=== PATIENT | female | born 1950 | race Caucasian/White ===

== ENCOUNTER 2020-05-11 17:20 | Emergency (ER) | payer BC, MEDICARE ==
[~2020-05-11] VITALS: Ht 167.6 cm; Wt 64.4 kg
[2020-05-11] MEDS ORDERED: MONT10TA97 PO (17:45)
[2020-05-11] MEDS ORDERED: ALPR0.5T8 PO (17:45)
[2020-05-11] MEDS ORDERED: ONDA4TAB5 SL (17:45)
[2020-05-11] MEDS ORDERED: FAMO-132 PO (17:45)
[2020-05-11] MEDS ORDERED: IV NORMAL SALINE 1000 ML BAG IV ONE ×2 (18:00→19:45)
[2020-05-11] MEDS ORDERED: ONDANSETRON 4 MG/2 ML VIAL IV ONE (18:00)
[2020-05-11 18:24] LABS: EOSINOPHILS % (AUTO) 0.1 % (0.0-7.0); LYMPHOCYTES # (AUTO) 0.4 K/uL (20.0-40.0); MONOCYTES # (AUTO) 0.2 K/uL (2.0-10.0)
--- NOTE | 2020-05-11 18:27 | NUR ---
Pt's Port a cath on Rt chest wall accessed, per Md order. Labs drawn and sent to Lab.
[2020-05-11 18:32] LABS: BASOPHILS % (AUTO) 0.1 % (0.0-2.0); HEMOGLOBIN 10.6 g/dL (10.9-14.3); LYMPHOCYTES % (AUTO) 5.7 % (20.5-51.5); MEAN CORPUSCULAR HEMOGLOBIN 33.7 uug (24.7-32.8); MEAN CORPUSCULAR HGB CONC 34 g/dL (32.3-35.6); MEAN CORPUSCULAR VOLUME 98.5 fL (75.5-95.3); MONOCYTES % (AUTO) 2.7 % (0.0-11.0); NEUTROPHILS # (AUTO) 6.6 K/uL (1.8-8.9); NEUTROPHILS % (AUTO) 91.4 % (38.5-71.5); PLATELET COUNT (AUTO) 81 K/uL (179-408); RED BLOOD CELL COUNT(AUTO) 3.15 MIL/uL (3.63-4.92); WHITE BLOOD COUNT (AUTO) 7.3 K/uL (3.8-11.8)
[2020-05-11 18:36] LABS: CREATININE 1.8 mg/dL (0.6-1.3)
[2020-05-11] MEDS ORDERED: ONDANSETRON 4 MG/2 ML VIAL ONE (18:36)
[2020-05-11 18:41] LABS: BILIRUBIN,DIRECT 0.2 mg/dL (0.0-0.2); BILIRUBIN,TOTAL 0.5 mg/dL (0.2-1.0); TOTAL PROTEIN, SERUM 8.1 g/dL (6.4-8.2)
[2020-05-11 20:55] LABS: MAGNESIUM 1.4 mg/dL (1.8-2.4); PHOSPHOROUS 3.5 mg/dL (2.5-4.9)
[2020-05-11] MEDS ORDERED: MAGNESIUM SULFATE/D5W 100 ML IV SCH ×2 (21:15→21:30)
[2020-05-11] MEDS ORDERED: MAGNESIUM SULFATE/D5W 200 ML ONE (21:35)
[2020-05-11] MEDS ORDERED: IV NORMAL SALINE 500 ML BAG IV ONE (21:45)
--- NOTE | 2020-05-11 22:00 | NUR ---
Patient able to tolerate PO fluid.
[2020-05-11 22:13] LABS: *BILIRUBIN,URIN NEGATIVE (NEGATIVE); *BLOOD, URINE NEGATIVE (NEGATIVE); *CLARITY,URINE CLEAR (CLEAR); *COLOR,URINE YELLOW (YELLOW); *KETONES,URINE NEGATIVE (NEGATIVE); *UROBILINOGEN,URINE 0.2 E.U./dl (NORMAL); LEUKOCYTE ESTERASE ,URINE 1+ (NEGATIVE); NITRITE, URINE NEGATIVE (NEGATIVE); PH,URINE 5.5 (5.0-8.0); UGLUCOSE NEGATIVE (NEGATIVE)
[2020-05-11 22:47] LABS: LYMPHOCYTES % (MANUAL) 8 % (20-40); MONOCYTES % (MANUAL) 1 % (2-10); NEUTROPHILS % (MANUAL) 91 % (42-75)
--- NOTE | 2020-05-12 00:30 | NUR ---
IV codi cath removed. Catheter intact and site benign. Pressure and 4x4 gauze applied to site. No bleeding noted.
--- NOTE | 2020-05-12 00:43 | NUR ---
Patient discharged to home in stable condition with arturo taking patient home. Written and verbal after care instructions given. Patient verbalizes understanding of instructions. Stressed follow up or return to ER for worsening s/s.
[2020-05-12 00:49] VITALS: BP 118/77
== END 2020-05-12 00:50 | disposition home or self-care (01) ==
LOC: ER 17:22
DX: U07.1 COVID-19 (principal); E86.0 Dehydration; K50.90 Crohn's disease, unspecified, without complications; D64.9 Anemia, unspecified; D69.6 Thrombocytopenia, unspecified; E87.1 Hypo-osmolality and hyponatremia; C44.90 Unspecified malignant neoplasm of skin, unspecified; Z79.899 Other long term (current) drug therapy
CPT/HCPCS: 36415; 71045; 80048; 80076; 81003; 83605; 83690; 83735; 84100; 84484; 85007; 85025; 85730; 87086; 87426; 93005; 96361; 96365; 96366; 96375; 99285; J2405; J3475; U0003; 70030-TC

== ENCOUNTER 2020-05-14 09:11 | Inpatient (IN) | payer MEDICARE, BC ==
[~2020-05-14] VITALS: Ht 167.6 cm; Wt 66.2 kg
[~2020-05-14 09:11] MED LIST: ALPR0.5T8 PO; FAMO-132 PO; MONT10TA97 PO; ONDA4TAB5 SL
[2020-05-14] MEDS ORDERED: TALA1CAP PO (09:35)
[2020-05-14] MEDS ORDERED: ONDANSETRON 4 MG/2 ML VIAL ONE (10:13)
[2020-05-14 12:04] LABS: ALANINE AMINOTRANSFERASE 25 U/L (14-59); ALKALINE PHOSPHATASE 42 U/L (50-136); ASPARTATE AMINOTRANSFERASE 25 U/L (15-37); BILIRUBIN,TOTAL 0.5 mg/dL (0.2-1.0); CARBON DIOXIDE 24 mmol/L (21-32); CHLORIDE 88 mmol/L (98-107); CREATININE 1.1 mg/dL (0.6-1.3); FERRITIN 653 ng/mL (8-252); GLUCOSE 112 mg/dL (74-106); LACTATE DEHYDROGENASE 144 U/L (81-234); POTASSIUM 4.3 mmol/L (3.5-5.1); TOTAL PROTEIN, SERUM 6.6 g/dL (6.4-8.2); UREA NITROGEN, BLOOD 13 mg/dL (7-18)
[2020-05-14 12:25] LABS: CREATINE KINASE, TOTAL 42 U/L (26-192)
[2020-05-14] MEDS ORDERED: IV NORMAL SALINE 1000 ML BAG IV ONE (12:30)
[2020-05-14 13:23] LABS: EOSINOPHILS % (AUTO) 0.1 % (0.0-7.0); HEMOGLOBIN 9.4 g/dL (10.9-14.3); LYMPHOCYTES # (AUTO) 0.4 K/uL (20.0-40.0); MEAN CORPUSCULAR HEMOGLOBIN 33.1 uug (24.7-32.8); MEAN CORPUSCULAR HGB CONC 34 g/dL (32.3-35.6); MONOCYTES # (AUTO) 0.1 K/uL (2.0-10.0); RED BLOOD CELL COUNT(AUTO) 2.85 MIL/uL (3.63-4.92)
[2020-05-14 13:25] LABS: BASOPHILS % (AUTO) 0.5 % (0.0-2.0); HEMATOCRIT 27.8 % (31.2-41.9); LYMPHOCYTES % (AUTO) 13.3 % (20.5-51.5); MEAN CORPUSCULAR VOLUME 97.8 fL (75.5-95.3); MONOCYTES % (AUTO) 3.3 % (0.0-11.0); NEUTROPHILS # (AUTO) 2.4 K/uL (1.8-8.9); NEUTROPHILS % (AUTO) 82.8 % (38.5-71.5); WHITE BLOOD COUNT (AUTO) 2.9 K/uL (3.8-11.8)
[2020-05-14] MEDS: MAGNESIUM SULFATE/D5W 100 ML IV SCH (13:29)
[2020-05-14 13:33] LABS: PLATELET COUNT (AUTO) 29 K/uL (179-408)
[2020-05-14] MEDS ORDERED: MAGNESIUM SULFATE/D5W 100 ML ONE ×2 (13:35→20:35)
[2020-05-14] MEDS ORDERED: CEFTRIAXONE 1 G in IV DEXTROSE 5% 50 ML IV ONE (13:45)
[2020-05-14] MEDS ORDERED: AZITHROMYCIN IV 500 MG in IV DEXTROSE 5% 250 ML IV ONE (13:45)
[2020-05-14] MEDS ORDERED: ONDANSETRON 4 MG/2 ML VIAL IV PRN (14:30)
[2020-05-14] MEDS ORDERED: ACETAMINOPHEN 650 MG SUPP.RECT RC PRN (14:30)
[2020-05-14 15:37] LABS: *BILIRUBIN,URIN NEGATIVE (NEGATIVE); *BLOOD, URINE NEGATIVE (NEGATIVE); *CLARITY,URINE CLEAR (CLEAR); *COLOR,URINE YELLOW (YELLOW); *KETONES,URINE NEGATIVE (NEGATIVE); *UROBILINOGEN,URINE 0.2 E.U./dl (NORMAL); LEUKOCYTE ESTERASE ,URINE 1+ (NEGATIVE); NITRITE, URINE NEGATIVE (NEGATIVE); UGLUCOSE NEGATIVE (NEGATIVE)
[2020-05-14] MEDS ORDERED: AZITHROMYCIN 500MG/ D5W 250ML IVPB **ER PYXIS ONLY IV ONE ×2 (15:50→20:35)
[2020-05-14] MEDS ORDERED: CEFTRIAXONE /D5W 50ML IVPB **ER PYXIS IV ONE (15:50)
[2020-05-14] MEDS ORDERED: ONDANSETRON ODT 4 MG TAB.RAPDIS SL ONE (16:15)
[2020-05-14] MEDS ORDERED: ONDANSETRON ODT 4 MG TAB.RAPDIS ONE ×2 (16:17→16:49)
[2020-05-14] MEDS ORDERED: MAGNESIUM SULFATE/D5W 100 ML IV SCH (17:15)
[2020-05-14] MEDS ORDERED: IV NS 1000 ML 1,000 ML IV PRN (17:15)
[2020-05-14 17:39] LABS: BACTERIA,URINE NONE SEEN /HPF (NONE SEEN); RBC,URINE 0-3 /HPF (0-3); SQUAMOUS EPITHELIAL CELL,UR FEW /HPF (NONE SEEN)
[2020-05-14 17:55] LABS: LYMPHOCYTES % (MANUAL) 11 % (20-40); MONOCYTES % (MANUAL) 2 % (2-10); NEUTROPHILS % (MANUAL) 87 % (42-75)
[2020-05-14] MEDS ORDERED: AZITHROMYCIN IV 500 MG in IV DEXTROSE 5% 250 ML IV SCH (20:15)
[2020-05-14 20:43] LABS: CREATININE 1.1 mg/dL (0.6-1.3); POTASSIUM 4.4 mmol/L (3.5-5.1)
[2020-05-14] MEDS ORDERED: ALBUTEROL SULFATE 2.5 MG/3 ML NEBU NEB PRN (22:30)
[2020-05-15 06:12] LABS: BASOPHILS % (AUTO) 0.1 % (0.0-2.0); HEMATOCRIT 25.6 % (31.2-41.9); HEMOGLOBIN 8.8 g/dL (10.9-14.3); LYMPHOCYTES # (AUTO) 0.7 K/uL (20.0-40.0); LYMPHOCYTES % (AUTO) 20.4 % (20.5-51.5); MEAN CORPUSCULAR HEMOGLOBIN 34.2 uug (24.7-32.8); MEAN CORPUSCULAR HGB CONC 35 g/dL (32.3-35.6); MEAN CORPUSCULAR VOLUME 99.2 fL (75.5-95.3); MONOCYTES # (AUTO) 0.1 K/uL (2.0-10.0); MONOCYTES % (AUTO) 3.4 % (0.0-11.0); NEUTROPHILS # (AUTO) 2.6 K/uL (1.8-8.9); NEUTROPHILS % (AUTO) 76.1 % (38.5-71.5); RED BLOOD CELL COUNT(AUTO) 2.58 MIL/uL (3.63-4.92); WHITE BLOOD COUNT (AUTO) 3.4 K/uL (3.8-11.8)
[2020-05-15 06:38] LABS: PLATELET COUNT (AUTO) 43 K/uL (179-408)
[2020-05-15 06:45] LABS: BILIRUBIN,TOTAL 0.5 mg/dL (0.2-1.0); CREATININE 1.1 mg/dL (0.6-1.3); PHOSPHOROUS 3.1 mg/dL (2.5-4.9); POTASSIUM 4.1 mmol/L (3.5-5.1); TOTAL PROTEIN, SERUM 6.6 g/dL (6.4-8.2); URIC ACID 4.5 mg/dL (2.6-6.0)
[2020-05-15] MEDS ORDERED: CEFTRIAXONE 1 G in IV DEXTROSE 5% 50 ML IV ONE (09:00)
[2020-05-15 09:01] LABS: THYROID STIMULATING HORMONE 0.328 mIU/mL (0.358-3.740)
[2020-05-15] MEDS ORDERED: MONTELUKAST SODIUM 10 MG TABLET ONE (09:09)
[2020-05-15] MEDS ORDERED: CEFTRIAXONE /D5W 50ML IVPB **ER PYXIS IV ONE (09:09)
[2020-05-15] MEDS ORDERED: FAMOTIDINE. 20 MG/2 ML VIAL IV ONE (09:10)
[2020-05-15] MEDS: MONTELUKAST SODIUM 10 MG TABLET PO SCH (09:16)
[2020-05-15] MEDS: IV NS 1000 ML 1,000 ML IV PRN (09:16)
[2020-05-15] MEDS: FAMOTIDINE 20 MG TABLET PO SCH (09:16)
[2020-05-15 16:55] LABS: IRON, SERUM 151 ug/dL (50-175)
[2020-05-15 17:02] LABS: *RHEUMATOID FACTOR SCREEN NEGATIVE (NEGATIVE)
[2020-05-15] MEDS: ACETAMINOPHEN 325 MG TABLET PO PRN (22:05)
[2020-05-16 00:15] VITALS: BP 104/46
[2020-05-16 04:24] VITALS: BP 120/64
[2020-05-16] MEDS ORDERED: VANCOMYCIN IV 1,000 MG in IV DEXTROSE 5% 250 ML IV ONE ×4 (05:30)
[2020-05-16] MEDS ORDERED: VANCOMYCIN IV 200 ML ONE (05:46)
[2020-05-16 07:01] LABS: CREATININE 1.1 mg/dL (0.6-1.3); POTASSIUM 3.7 mmol/L (3.5-5.1)
[2020-05-16 08:23] LABS: BASOPHILS % (AUTO) 0.1 % (0.0-2.0); EOSINOPHILS % (AUTO) 0.2 % (0.0-7.0); HEMATOCRIT 25.5 % (31.2-41.9); HEMOGLOBIN 8.9 g/dL (10.9-14.3); LYMPHOCYTES # (AUTO) 1.1 K/uL (20.0-40.0); LYMPHOCYTES % (AUTO) 34.6 % (20.5-51.5); MEAN CORPUSCULAR HEMOGLOBIN 34.1 uug (24.7-32.8); MEAN CORPUSCULAR HGB CONC 35 g/dL (32.3-35.6); MEAN CORPUSCULAR VOLUME 97.8 fL (75.5-95.3); MONOCYTES # (AUTO) 0.1 K/uL (2.0-10.0); MONOCYTES % (AUTO) 3.3 % (0.0-11.0); NEUTROPHILS # (AUTO) 1.9 K/uL (1.8-8.9); NEUTROPHILS % (AUTO) 61.8 % (38.5-71.5); RED BLOOD CELL COUNT(AUTO) 2.61 MIL/uL (3.63-4.92)
[2020-05-16] MEDS: MONTELUKAST SODIUM 10 MG TABLET PO SCH (10:02)
[2020-05-16] MEDS: FAMOTIDINE 20 MG TABLET PO SCH (10:02)
[2020-05-16 12:27] VITALS: BP 135/67
[2020-05-16] MEDS: IV NS 1000 ML 1,000 ML IV PRN (12:47)
[2020-05-16 13:08] LABS: *IMMUNOGLOBULIN G, SERUM 992 mg/dL (586-1602); IMMUNOGLOBULIN A, SERUM 173 mg/dL (87-352); IMMUNOGLOBULIN M, SERUM 77 mg/dL (26-217)
[2020-05-16 16:00] VITALS: BP 144/62
[2020-05-16 16:03] LABS: BASOPHILS % (AUTO) 0.1 % (0.0-2.0); EOSINOPHILS % (AUTO) 0.1 % (0.0-7.0); HEMATOCRIT 24.3 % (31.2-41.9); HEMOGLOBIN 8.3 g/dL (10.9-14.3); LYMPHOCYTES # (AUTO) 0.5 K/uL (20.0-40.0); LYMPHOCYTES % (AUTO) 20.7 % (20.5-51.5); MEAN CORPUSCULAR HEMOGLOBIN 33.6 uug (24.7-32.8); MEAN CORPUSCULAR HGB CONC 34 g/dL (32.3-35.6); MEAN CORPUSCULAR VOLUME 98.7 fL (75.5-95.3); MONOCYTES # (AUTO) 0.1 K/uL (2.0-10.0); MONOCYTES % (AUTO) 3.9 % (0.0-11.0); NEUTROPHILS # (AUTO) 1.8 K/uL (1.8-8.9); NEUTROPHILS % (AUTO) 75.2 % (38.5-71.5); WHITE BLOOD COUNT (AUTO) 2.4 K/uL (3.8-11.8)
[2020-05-16 16:08] LABS: RED BLOOD CELL COUNT(AUTO) 2.46 MIL/uL (3.63-4.92)
[2020-05-16 16:10] LABS: PLATELET COUNT (AUTO) 22 K/uL (179-408)
[2020-05-16] MEDS: VANCOMYCIN IV 750 MG in IV DEXTROSE 5% 250 ML IV SCH (17:58)
[2020-05-16 19:12] LABS: BAND % (MANUAL) 1 % (0-10); LYMPHOCYTES % (MANUAL) 16 % (20-40); MONOCYTES % (MANUAL) 3 % (2-10); NEUTROPHILS % (MANUAL) 80 % (42-75)
[2020-05-16 20:08] LABS: BAND % (MANUAL) 1 % (0-10); EOSINOPHILS % (MANUAL) 1 % (0-8); LYMPHOCYTES % (MANUAL) 34 % (20-40); MONOCYTES % (MANUAL) 6 % (2-10); NEUTROPHILS % (MANUAL) 58 % (42-75)
[2020-05-16 20:21] VITALS: BP 141/66
[2020-05-16] MEDS: ACETAMINOPHEN 325 MG TABLET PO PRN (23:18)
[2020-05-17 01:29] VITALS: BP 121/51
[2020-05-17] MEDS: IV NS 1000 ML 1,000 ML IV PRN ×2 (01:53→14:06)
[2020-05-17 04:45] VITALS: BP 107/61
[2020-05-17] MEDS: VANCOMYCIN IV 750 MG in IV DEXTROSE 5% 250 ML IV SCH ×2 (05:04→18:27)
[2020-05-17 08:26] LABS: CREATININE 1.1 mg/dL (0.6-1.3); POTASSIUM 3.4 mmol/L (3.5-5.1)
[2020-05-17 10:04] LABS: MAGNESIUM 1.5 mg/dL (1.8-2.4); PHOSPHOROUS 1.5 mg/dL (2.5-4.9)
[2020-05-17] MEDS: MONTELUKAST SODIUM 10 MG TABLET PO SCH (10:46)
[2020-05-17] MEDS: FAMOTIDINE 20 MG TABLET PO SCH (10:46)
[2020-05-17] MEDS ORDERED: POTASSIUM CHLORIDE 20 MEQ TAB.PRT.SR PO SCH (11:15)
[2020-05-17 12:00] VITALS: BP 136/56
[2020-05-17] MEDS: ACETAMINOPHEN 325 MG TABLET PO PRN ×2 (12:25→22:44)
[2020-05-17 12:29] LABS: BASOPHILS % (AUTO) 0.1 % (0.0-2.0); EOSINOPHILS % (AUTO) 0.4 % (0.0-7.0); HEMATOCRIT 22.9 % (31.2-41.9); HEMOGLOBIN 7.9 g/dL (10.9-14.3); LYMPHOCYTES # (AUTO) 0.7 K/uL (20.0-40.0); LYMPHOCYTES % (AUTO) 30.2 % (20.5-51.5); MEAN CORPUSCULAR HEMOGLOBIN 34.3 uug (24.7-32.8); MEAN CORPUSCULAR HGB CONC 35 g/dL (32.3-35.6); MEAN CORPUSCULAR VOLUME 99.5 fL (75.5-95.3); MONOCYTES # (AUTO) 0.1 K/uL (2.0-10.0); NEUTROPHILS # (AUTO) 1.4 K/uL (1.8-8.9); NEUTROPHILS % (AUTO) 66.3 % (38.5-71.5); WHITE BLOOD COUNT (AUTO) 2.2 K/uL (3.8-11.8)
[2020-05-17 13:15] LABS: RED BLOOD CELL COUNT(AUTO) 2.31 MIL/uL (3.63-4.92)
[2020-05-17 13:17] LABS: PLATELET COUNT (AUTO) 16 K/uL (179-408)
[2020-05-17] MEDS ORDERED: SODIUM PHOSPHATE MM 15 MMOL in IV NORMAL SALINE 250 ML IV ONE (14:00)
[2020-05-17] MEDS: MAGNESIUM SULFATE/D5W 100 ML IV SCH ×3 (15:10→17:24)
[2020-05-17] MEDS ORDERED: ACETAMINOPHEN 325 MG TABLET PO ONE (15:30)
[2020-05-17] MEDS ORDERED: diphenhydrAMINE 50 MG/1 ML VIAL IV ONE (15:30)
[2020-05-17 15:52] VITALS: BP 113/53
[2020-05-17 18:15] LABS: LYMPHOCYTES % (MANUAL) 27 % (20-40); MONOCYTES % (MANUAL) 3 % (2-10); NEUTROPHILS % (MANUAL) 70 % (42-75)
[2020-05-17 21:55] VITALS: BP 147/69
[2020-05-17] MEDS: ALPRAZOLAM 0.5 MG TABLET PO PRN (22:44)
[2020-05-18] VITALS (12 sets, daily range): BP systolic 110–158; BP diastolic 50–82
[2020-05-18 00:06] LABS: TRIIODOTHYRONINE, FREE 2.5 pg/mL (2.0-4.4)
[2020-05-18] MEDS: ACETAMINOPHEN 325 MG TABLET PO PRN (05:58)
[2020-05-18 06:00] LABS: EOSINOPHILS % (AUTO) 0.5 % (0.0-7.0); HEMATOCRIT 24.5 % (31.2-41.9); HEMOGLOBIN 8.4 g/dL (10.9-14.3); LYMPHOCYTES # (AUTO) 0.8 K/uL (20.0-40.0); LYMPHOCYTES % (AUTO) 36.5 % (20.5-51.5); MEAN CORPUSCULAR HEMOGLOBIN 34.4 uug (24.7-32.8); MEAN CORPUSCULAR HGB CONC 34 g/dL (32.3-35.6); MEAN CORPUSCULAR VOLUME 100.1 fL (75.5-95.3); MONOCYTES # (AUTO) 0.1 K/uL (2.0-10.0); MONOCYTES % (AUTO) 2.9 % (0.0-11.0); NEUTROPHILS # (AUTO) 1.4 K/uL (1.8-8.9); NEUTROPHILS % (AUTO) 60.1 % (38.5-71.5); WHITE BLOOD COUNT (AUTO) 2.3 K/uL (3.8-11.8)
[2020-05-18 06:02] LABS: BILIRUBIN,TOTAL 0.6 mg/dL (0.2-1.0); CREATININE 1.2 mg/dL (0.6-1.3); MAGNESIUM 1.9 mg/dL (1.8-2.4); PHOSPHOROUS 2.3 mg/dL (2.5-4.9); POTASSIUM 3.5 mmol/L (3.5-5.1); TOTAL PROTEIN, SERUM 6.4 g/dL (6.4-8.2)
[2020-05-18] MEDS: IV NS 1000 ML 1,000 ML IV PRN (06:19)
[2020-05-18] MEDS: VANCOMYCIN IV 750 MG in IV DEXTROSE 5% 250 ML IV SCH (06:21)
[2020-05-18 06:41] LABS: RED BLOOD CELL COUNT(AUTO) 2.44 MIL/uL (3.63-4.92)
[2020-05-18 06:45] LABS: PLATELET COUNT (AUTO) 14 K/uL (179-408)
[2020-05-18] MEDS ORDERED: NEUTRA PHOS PACKET PO ONE (08:00)
[2020-05-18] MEDS: FAMOTIDINE 20 MG TABLET PO SCH (09:39)
[2020-05-18] MEDS: MONTELUKAST SODIUM 10 MG TABLET PO SCH (09:39)
[2020-05-18 16:11] LABS: *ANTI-SCLERODERMA-70 AB <0.2 AI (0.0-0.9); *SJOGREN'S ANTI-SS-A <0.2 AI (0.0-0.9); *SJOGREN'S ANTI-SS-B <0.2 AI (0.0-0.9); *SMITH ANTIBODIES <0.2 AI (0.0-0.9); ANTI-DNA(DS) AB, QN 2 IU/mL (0-9)
[2020-05-18] MEDS: CEFEPIME HCL 1 G in IV DEXTROSE 5% 50 ML IV SCH (20:52)
[2020-05-18] MEDS: VANCOMYCIN IV 1,000 MG in IV DEXTROSE 5% 250 ML IV SCH (22:09)
[2020-05-19 01:21] VITALS: BP 157/66
[2020-05-19] MEDS: ALPRAZOLAM 0.5 MG TABLET PO PRN (01:21)
[2020-05-19] MEDS: ACETAMINOPHEN 325 MG TABLET PO PRN ×2 (01:22→17:07)
[2020-05-19] MEDS: IV NS 1000 ML 1,000 ML IV PRN (01:22)
[2020-05-19 06:12] VITALS: BP 101/43
[2020-05-19 07:06] LABS: BASOPHILS % (AUTO) 0.1 % (0.0-2.0); EOSINOPHILS % (AUTO) 0.7 % (0.0-7.0); LYMPHOCYTES # (AUTO) 0.6 K/uL (20.0-40.0); LYMPHOCYTES % (AUTO) 31.4 % (20.5-51.5); MEAN CORPUSCULAR HEMOGLOBIN 35.2 uug (24.7-32.8); MEAN CORPUSCULAR HGB CONC 36 g/dL (32.3-35.6); MEAN CORPUSCULAR VOLUME 98.9 fL (75.5-95.3); MONOCYTES # (AUTO) 0.1 K/uL (2.0-10.0); MONOCYTES % (AUTO) 5.4 % (0.0-11.0); NEUTROPHILS # (AUTO) 1.1 K/uL (1.8-8.9); NEUTROPHILS % (AUTO) 62.4 % (38.5-71.5)
[2020-05-19 07:37] LABS: CREATININE 0.9 mg/dL (0.6-1.3); MAGNESIUM 1.4 mg/dL (1.8-2.4); PHOSPHOROUS 2.2 mg/dL (2.5-4.9)
[2020-05-19 07:44] LABS: POTASSIUM 2.8 mmol/L (3.5-5.1)
[2020-05-19] MEDS: CEFEPIME HCL 1 G in IV DEXTROSE 5% 50 ML IV SCH (09:26)
[2020-05-19] MEDS: MONTELUKAST SODIUM 10 MG TABLET PO SCH (09:26)
[2020-05-19] MEDS: FAMOTIDINE 20 MG TABLET PO SCH (09:26)
[2020-05-19] MEDS ORDERED: POTASSIUM PHOSPHATE MM 7.5 MMOL in IV NORMAL SALINE 97.5 ML IV ONE (09:30)
[2020-05-19] MEDS: MAGNESIUM SULFATE/D5W 100 ML IV SCH ×4 (10:13→13:34)
[2020-05-19 11:46] LABS: RED BLOOD CELL COUNT(AUTO) 2.07 MIL/uL (3.63-4.92); WHITE BLOOD COUNT (AUTO) 1.8 K/uL (3.8-11.8)
[2020-05-19 11:47] LABS: HEMOGLOBIN 7.3 g/dL (10.9-14.3)
[2020-05-19 11:48] LABS: HEMATOCRIT 20.4 % (31.2-41.9); PLATELET COUNT (AUTO) 23 K/uL (179-408)
[2020-05-19 13:14] VITALS: BP 129/59
[2020-05-19] MEDS: POTASSIUM CHLORIDE 50 ML IV SCH ×6 (14:38→20:43)
[2020-05-19] MEDS ORDERED: NEUTRA PHOS PACKET PO ONE (15:15)
[2020-05-19 16:00] VITALS: BP 134/63
[2020-05-19 16:06] LABS: BASOPHILS % (AUTO) 0.1 % (0.0-2.0); EOSINOPHILS % (AUTO) 0.6 % (0.0-7.0); HEMATOCRIT 22.4 % (31.2-41.9); HEMOGLOBIN 7.6 g/dL (10.9-14.3); LYMPHOCYTES # (AUTO) 0.5 K/uL (20.0-40.0); LYMPHOCYTES % (AUTO) 25.7 % (20.5-51.5); MEAN CORPUSCULAR HEMOGLOBIN 33.3 uug (24.7-32.8); MEAN CORPUSCULAR HGB CONC 34 g/dL (32.3-35.6); MEAN CORPUSCULAR VOLUME 98.5 fL (75.5-95.3); MONOCYTES # (AUTO) 0.1 K/uL (2.0-10.0); MONOCYTES % (AUTO) 5.5 % (0.0-11.0); NEUTROPHILS # (AUTO) 1.3 K/uL (1.8-8.9); NEUTROPHILS % (AUTO) 68.1 % (38.5-71.5)
[2020-05-19 16:26] LABS: PLATELET COUNT (AUTO) 26 K/uL (179-408); RED BLOOD CELL COUNT(AUTO) 2.28 MIL/uL (3.63-4.92); WHITE BLOOD COUNT (AUTO) 1.9 K/uL (3.8-11.8)
[2020-05-19] MEDS: MICAFUNGIN SODIUM 100 MG in IV NORMAL SALINE 100 ML IV SCH (16:42)
[2020-05-19 17:00] VITALS: BP 135/63
[2020-05-19] MEDS: VANCOMYCIN IV 1,000 MG in IV DEXTROSE 5% 250 ML IV SCH (17:55)
[2020-05-19 20:17] VITALS: BP 123/84
[2020-05-19] MEDS: MEROPENEM 1 G in IV NORMAL SALINE 100 ML IV SCH (21:37)
[2020-05-19 22:34] LABS: EOSINOPHILS % (MANUAL) 2 % (0-8); LYMPHOCYTES % (MANUAL) 30 % (20-40); MONOCYTES % (MANUAL) 14 % (2-10); NEUTROPHILS % (MANUAL) 54 % (42-75)
[2020-05-20 00:55] VITALS: BP 141/57
[2020-05-20 04:26] VITALS: BP 122/57
[2020-05-20] MEDS: IV NS 1000 ML 1,000 ML IV PRN (04:44)
[2020-05-20] MEDS: MEROPENEM 1 G in IV NORMAL SALINE 100 ML IV SCH ×3 (05:27→22:02)
[2020-05-20 08:00] VITALS: BP 136/62
[2020-05-20] MEDS: MONTELUKAST SODIUM 10 MG TABLET PO SCH (09:48)
[2020-05-20] MEDS: FAMOTIDINE 20 MG TABLET PO SCH (09:48)
[2020-05-20] MEDS: VANCOMYCIN IV 1,000 MG in IV DEXTROSE 5% 250 ML IV SCH ×2 (10:00→18:40)
[2020-05-20 11:26] LABS: PHOSPHOROUS 1.6 mg/dL (2.5-4.9)
[2020-05-20 11:27] LABS: HEMOGLOBIN 7.9 g/dL (10.9-14.3); MEAN CORPUSCULAR VOLUME 99.9 fL (75.5-95.3); MONOCYTES # (AUTO) 0.1 K/uL (2.0-10.0)
[2020-05-20 11:29] LABS: HEMATOCRIT 22.8 % (31.2-41.9); LYMPHOCYTES # (AUTO) 0.4 K/uL (20.0-40.0); LYMPHOCYTES % (AUTO) 23.2 % (20.5-51.5); MEAN CORPUSCULAR HEMOGLOBIN 34.5 uug (24.7-32.8); MEAN CORPUSCULAR HGB CONC 35 g/dL (32.3-35.6); MONOCYTES % (AUTO) 7.1 % (0.0-11.0); NEUTROPHILS % (AUTO) 68.7 % (38.5-71.5)
[2020-05-20 12:00] VITALS: BP 143/67
[2020-05-20 13:14] LABS: RED BLOOD CELL COUNT(AUTO) 2.29 MIL/uL (3.63-4.92)
[2020-05-20 13:15] LABS: PLATELET COUNT (AUTO) 29 K/uL (179-408); WHITE BLOOD COUNT (AUTO) 1.5 K/uL (3.8-11.8)
[2020-05-20] MEDS ORDERED: NEUTRA PHOS PACKET PO ONE (13:15)
[2020-05-20] MEDS ORDERED: IV 0.9% SODIUM CHLORID+ 20 KCL 1,000 ML IV ONE (13:15)
[2020-05-20] MEDS ORDERED: POTASSIUM CHLORIDE 20 MEQ TAB.PRT.SR PO ONE (13:15)
[2020-05-20] MEDS: ACETAMINOPHEN 325 MG TABLET PO PRN ×2 (14:44→22:29)
[2020-05-20] MEDS: MICAFUNGIN SODIUM 100 MG in IV NORMAL SALINE 100 ML IV SCH (15:40)
[2020-05-20 16:00] VITALS: BP 135/69
[2020-05-20 20:16] LABS: BAND % (MANUAL) 1 % (0-10); LYMPHOCYTES % (MANUAL) 34 % (20-40); MONOCYTES % (MANUAL) 4 % (2-10); NEUTROPHILS % (MANUAL) 60 % (42-75)
[2020-05-20 20:44] VITALS: BP 143/63
[2020-05-21 01:24] VITALS: BP 119/53
[2020-05-21] MEDS: MEROPENEM 1 G in IV NORMAL SALINE 100 ML IV SCH ×3 (05:04→21:22)
[2020-05-21 05:51] VITALS: BP 140/67
[2020-05-21 06:54] LABS: BASOPHILS % (AUTO) 0.2 % (0.0-2.0); EOSINOPHILS # (AUTO) 0.1 K/uL (0.0-0.7); EOSINOPHILS % (AUTO) 4.4 % (0.0-7.0); HEMATOCRIT 22.1 % (31.2-41.9); HEMOGLOBIN 7.7 g/dL (10.9-14.3); LYMPHOCYTES # (AUTO) 0.5 K/uL (20.0-40.0); LYMPHOCYTES % (AUTO) 31.6 % (20.5-51.5); MEAN CORPUSCULAR HEMOGLOBIN 34.3 uug (24.7-32.8); MEAN CORPUSCULAR HGB CONC 35 g/dL (32.3-35.6); MEAN CORPUSCULAR VOLUME 98.6 fL (75.5-95.3); MONOCYTES # (AUTO) 0.2 K/uL (2.0-10.0); NEUTROPHILS # (AUTO) 0.9 K/uL (1.8-8.9); NEUTROPHILS % (AUTO) 53.8 % (38.5-71.5)
[2020-05-21 07:17] LABS: POTASSIUM 3.7 mmol/L (3.5-5.1)
[2020-05-21 08:39] LABS: PLATELET COUNT (AUTO) 38 K/uL (179-408); RED BLOOD CELL COUNT(AUTO) 2.24 MIL/uL (3.63-4.92); WHITE BLOOD COUNT (AUTO) 1.6 K/uL (3.8-11.8)
[2020-05-21] MEDS: MONTELUKAST SODIUM 10 MG TABLET PO SCH (09:07)
[2020-05-21] MEDS: FAMOTIDINE 20 MG TABLET PO SCH (09:07)
[2020-05-21] MEDS: ACETAMINOPHEN 325 MG TABLET PO PRN ×2 (09:39→20:06)
[2020-05-21] MEDS: ALPRAZOLAM 0.5 MG TABLET PO PRN (09:46)
[2020-05-21] MEDS: ASCORBIC ACID 500 MG TABLET PO SCH (11:30)
[2020-05-21] MEDS: CHOLECALCIFEROL 1,000 UNIT TABLET PO SCH (11:30)
[2020-05-21 12:00] VITALS: BP 134/66
[2020-05-21] MEDS: MICAFUNGIN SODIUM 100 MG in IV NORMAL SALINE 100 ML IV SCH (14:26)
[2020-05-21] MEDS: VANCOMYCIN IV 1,000 MG in IV DEXTROSE 5% 250 ML IV SCH (16:56)
[2020-05-21 17:02] VITALS: BP 128/63
[2020-05-21 20:00] VITALS: BP 145/73
[2020-05-21 21:05] LABS: EOSINOPHILS % (MANUAL) 4 % (0-8); LYMPHOCYTES % (MANUAL) 39 % (20-40); MONOCYTES % (MANUAL) 5 % (2-10); NEUTROPHILS % (MANUAL) 52 % (42-75)
[2020-05-21] MEDS ORDERED: TBO-FILGRASTIM 300 MCG/0.5 ML SYRINGE SQ SCH (23:00)
[2020-05-22 00:40] VITALS: BP 143/72
[2020-05-22 04:00] VITALS: BP 157/81
[2020-05-22] MEDS: ACETAMINOPHEN 325 MG TABLET PO PRN ×2 (04:43→22:21)
[2020-05-22] MEDS: MEROPENEM 1 G in IV NORMAL SALINE 100 ML IV SCH ×3 (05:32→22:21)
[2020-05-22 07:40] LABS: BASOPHILS % (AUTO) 0.2 % (0.0-2.0); EOSINOPHILS # (AUTO) 0.1 K/uL (0.0-0.7); EOSINOPHILS % (AUTO) 5.4 % (0.0-7.0); HEMATOCRIT 21.1 % (31.2-41.9); HEMOGLOBIN 7.6 g/dL (10.9-14.3); LYMPHOCYTES # (AUTO) 0.6 K/uL (20.0-40.0); LYMPHOCYTES % (AUTO) 34.3 % (20.5-51.5); MEAN CORPUSCULAR HEMOGLOBIN 37.9 uug (24.7-32.8); MEAN CORPUSCULAR HGB CONC 36 g/dL (32.3-35.6); MEAN CORPUSCULAR VOLUME 105.6 fL (75.5-95.3); MONOCYTES # (AUTO) 0.2 K/uL (2.0-10.0); MONOCYTES % (AUTO) 12.6 % (0.0-11.0); NEUTROPHILS # (AUTO) 0.8 K/uL (1.8-8.9); NEUTROPHILS % (AUTO) 47.5 % (38.5-71.5); PLATELET COUNT (AUTO) 63 K/uL (179-408)
[2020-05-22 07:44] LABS: WHITE BLOOD COUNT (AUTO) 1.7 K/uL (3.8-11.8)
[2020-05-22] MEDS ORDERED: TBO-FILGRASTIM 300 MCG/0.5 ML SYRINGE SQ SCH ×2 (08:00→12:00)
[2020-05-22 08:27] LABS: BILIRUBIN,TOTAL 0.6 mg/dL (0.2-1.0); CREATININE 0.9 mg/dL (0.6-1.3); MAGNESIUM 1.5 mg/dL (1.8-2.4); PHOSPHOROUS 1.3 mg/dL (2.5-4.9); POTASSIUM 3.6 mmol/L (3.5-5.1); TOTAL PROTEIN, SERUM 6.6 g/dL (6.4-8.2)
[2020-05-22] MEDS: FAMOTIDINE 20 MG TABLET PO SCH (10:04)
[2020-05-22] MEDS: MONTELUKAST SODIUM 10 MG TABLET PO SCH (10:05)
[2020-05-22] MEDS: ASCORBIC ACID 500 MG TABLET PO SCH (10:05)
[2020-05-22] MEDS: CHOLECALCIFEROL 1,000 UNIT TABLET PO SCH (10:05)
[2020-05-22] MEDS: MAGNESIUM SULFATE/D5W 100 ML IV SCH ×3 (10:08→12:26)
[2020-05-22 11:07] LABS: A/G RATIO 1.1 (0.7-1.7); ALBUMIN 3.6 g/dL (2.9-4.4); ALPHA-1-GLOBULIN 0.3 g/dL (0.0-0.4); ALPHA-2-GLOBULIN 1.1 g/dL (0.4-1.0); BETA GLOBULIN 1.1 g/dL (0.7-1.3); GAMMA GLOBULIN 0.9 g/dL (0.4-1.8); GLOBULIN, TOTAL 3.3 g/dL (2.2-3.9); M-SPIKE Not Observed g/dL (Not Observed)
[2020-05-22 11:29] VITALS: BP 155/75
[2020-05-22] MEDS: ALPRAZOLAM 0.5 MG TABLET PO PRN ×2 (11:31→22:21)
[2020-05-22] MEDS: SODIUM PHOSPHATE MM 15 MMOL in IV NORMAL SALINE 250 ML IV ONE ×2 (13:27→15:01)
[2020-05-22] MEDS: MICAFUNGIN SODIUM 100 MG in IV NORMAL SALINE 100 ML IV SCH (14:01)
[2020-05-22] MEDS: VANCOMYCIN IV 1,000 MG in IV DEXTROSE 5% 250 ML IV SCH (16:59)
[2020-05-22 18:16] VITALS: BP 148/72
[2020-05-22 20:18] LABS: EOSINOPHILS % (MANUAL) 1 % (0-8); LYMPHOCYTES % (MANUAL) 40 % (20-40); MONOCYTES % (MANUAL) 16 % (2-10); NEUTROPHILS % (MANUAL) 43 % (42-75)
[2020-05-22 21:14] VITALS: BP 144/64
[2020-05-23 00:04] VITALS: BP 138/59
[2020-05-23] MEDS: MEROPENEM 1 G in IV NORMAL SALINE 100 ML IV SCH ×3 (05:08→23:14)
[2020-05-23 06:45] VITALS: BP 140/72
[2020-05-23] MEDS: CHOLECALCIFEROL 1,000 UNIT TABLET PO SCH (09:35)
[2020-05-23] MEDS: MONTELUKAST SODIUM 10 MG TABLET PO SCH (09:35)
[2020-05-23] MEDS: FAMOTIDINE 20 MG TABLET PO SCH (09:35)
[2020-05-23] MEDS: ASCORBIC ACID 500 MG TABLET PO SCH (09:35)
[2020-05-23] MEDS: ACETAMINOPHEN 325 MG TABLET PO PRN ×2 (10:06→23:45)
[2020-05-23 11:37] LABS: CREATININE 1.1 mg/dL (0.6-1.3); MAGNESIUM 1.9 mg/dL (1.8-2.4); PHOSPHOROUS 1.8 mg/dL (2.5-4.9); POTASSIUM 3.8 mmol/L (3.5-5.1)
[2020-05-23 11:44] VITALS: BP 114/81
[2020-05-23 11:47] VITALS: BP 145/73
[2020-05-23 11:53] LABS: BASOPHILS # (AUTO) 0.1 K/uL (0.0-8.0); EOSINOPHILS # (AUTO) 0.1 K/uL (0.0-0.7); EOSINOPHILS % (AUTO) 1.6 % (0.0-7.0); HEMATOCRIT 23.7 % (31.2-41.9); HEMOGLOBIN 8.4 g/dL (10.9-14.3); LYMPHOCYTES # (AUTO) 0.9 K/uL (20.0-40.0); LYMPHOCYTES % (AUTO) 16.6 % (20.5-51.5); MEAN CORPUSCULAR HEMOGLOBIN 37.5 uug (24.7-32.8); MEAN CORPUSCULAR HGB CONC 36 g/dL (32.3-35.6); MEAN CORPUSCULAR VOLUME 105.8 fL (75.5-95.3); MONOCYTES # (AUTO) 0.4 K/uL (2.0-10.0); MONOCYTES % (AUTO) 8.1 % (0.0-11.0); NEUTROPHILS # (AUTO) 3.8 K/uL (1.8-8.9); NEUTROPHILS % (AUTO) 72.7 % (38.5-71.5); PLATELET COUNT (AUTO) 95 K/uL (179-408); RED BLOOD CELL COUNT(AUTO) 2.24 MIL/uL (3.63-4.92); WHITE BLOOD COUNT (AUTO) 5.2 K/uL (3.8-11.8)
[2020-05-23] MEDS: ALPRAZOLAM 0.5 MG TABLET PO PRN ×2 (12:39→23:46)
[2020-05-23] MEDS: MICAFUNGIN SODIUM 100 MG in IV NORMAL SALINE 100 ML IV SCH (14:31)
[2020-05-23 16:03] VITALS: BP 159/66
[2020-05-23] MEDS: VANCOMYCIN IV 1,000 MG in IV DEXTROSE 5% 250 ML IV SCH (16:53)
[2020-05-23] MEDS ORDERED: SODIUM PHOSPHATE MM 15 MMOL in IV NORMAL SALINE 250 ML IV ONE ×2 (17:00→20:00)
[2020-05-23 17:12] LABS: EOSINOPHILS % (MANUAL) 1 % (0-8); LYMPHOCYTES % (MANUAL) 18 % (20-40); MONOCYTES % (MANUAL) 7 % (2-10); NEUTROPHILS % (MANUAL) 74 % (42-75)
[2020-05-23 20:21] VITALS: BP 145/70
[2020-05-24 00:09] VITALS: BP 139/60
[2020-05-24 04:18] VITALS: BP 133/39
[2020-05-24] MEDS: MEROPENEM 1 G in IV NORMAL SALINE 100 ML IV SCH (05:56)
[2020-05-24 07:25] LABS: BASOPHILS % (AUTO) 0.2 % (0.0-2.0); EOSINOPHILS # (AUTO) 0.1 K/uL (0.0-0.7); EOSINOPHILS % (AUTO) 2.2 % (0.0-7.0); HEMATOCRIT 23.2 % (31.2-41.9); HEMOGLOBIN 8.4 g/dL (10.9-14.3); LYMPHOCYTES # (AUTO) 1.4 K/uL (20.0-40.0); MEAN CORPUSCULAR HEMOGLOBIN 41.5 uug (24.7-32.8); MEAN CORPUSCULAR HGB CONC 36 g/dL (32.3-35.6); MEAN CORPUSCULAR VOLUME 114.2 fL (75.5-95.3); MONOCYTES # (AUTO) 0.5 K/uL (2.0-10.0); MONOCYTES % (AUTO) 8.3 % (0.0-11.0); NEUTROPHILS # (AUTO) 4.3 K/uL (1.8-8.9); NEUTROPHILS % (AUTO) 67.3 % (38.5-71.5); PLATELET COUNT (AUTO) 116 K/uL (179-408); WHITE BLOOD COUNT (AUTO) 6.3 K/uL (3.8-11.8)
[2020-05-24 08:09] LABS: RED BLOOD CELL COUNT(AUTO) 2.03 MIL/uL (3.63-4.92)
[2020-05-24 08:20] LABS: CREATININE 1.1 mg/dL (0.6-1.3); MAGNESIUM 1.7 mg/dL (1.8-2.4); PHOSPHOROUS 4.3 mg/dL (2.5-4.9); POTASSIUM 3.8 mmol/L (3.5-5.1)
[2020-05-24] MEDS: MONTELUKAST SODIUM 10 MG TABLET PO SCH (08:44)
[2020-05-24] MEDS: CHOLECALCIFEROL 1,000 UNIT TABLET PO SCH (08:44)
[2020-05-24] MEDS: ASCORBIC ACID 500 MG TABLET PO SCH (08:44)
[2020-05-24] MEDS: FAMOTIDINE 20 MG TABLET PO SCH (08:44)
[2020-05-24] MEDS ORDERED: MAGNESIUM SULFATE/D5W 100 ML IV SCH (09:45)
[2020-05-24 12:00] VITALS: BP 144/65
[2020-05-24] MEDS ORDERED: ASCO500T21 PO (12:13)
[2020-05-24] MEDS ORDERED: CHOL10002 PO (12:13)
== END 2020-05-24 14:40 | disposition home health service (06) | DRG 808 ==
LOC: ER 09:11 → TRANSITION 22:13 → TELE3 05-15 20:48
PROVIDERS: ADMIT Nurse Practitioner Acute Care; ATTEND Nurse Practitioner Acute Care
PROC: 30233R1 Transfusion of Nonautologous Platelets into Peripheral Vein, Percutaneous Approach (ICD-10-PCS; principal; 2020-05-15)
DX: D61.810 Antineoplastic chemotherapy induced pancytopenia (principal); A41.1 Sepsis due to other specified staphylococcus; U07.1 COVID-19; J12.89 Other viral pneumonia; K50.90 Crohn's disease, unspecified, without complications; E87.2 Acidosis; E87.1 Hypo-osmolality and hyponatremia; C44.92 Squamous cell carcinoma of skin, unspecified; E86.0 Dehydration; Z93.2 Ileostomy status; Z98.1 Arthrodesis status; Z90.49 Acquired absence of other specified parts of digestive tract; Z88.0 Allergy status to penicillin; Z88.2 Allergy status to sulfonamides; Z00.6 Encounter for examination for normal comparison and control in clinical research program; E87.6 Hypokalemia; E83.42 Hypomagnesemia; E83.39 Other disorders of phosphorus metabolism; R55 Syncope and collapse; R53.1 Weakness; J43.9 Emphysema, unspecified
CPT/HCPCS: 36415; 70030-TC; 71045; 76700; 82533; 82784; 83550; 83605; 83615; 83690; 83735; 84100; 84155; 84165; 84443; 84481; 84550; 85025; 85610; 85730; 86038; 86140; 86334; 86430; 86850; 86900; 86901; 87040; 87086; 93005; A4663; G0378; J0456; J0692; J0696; J1447; J2185; J2248; J2405; J3370; J3475; J3480; J3490; J7030; J7040; J7050; J7060; P9035-BL; Q0162; U0003